=== PATIENT | female | born 1985 | race African-American/Black ===

== ENCOUNTER 2020-04-24 19:52 | Emergency (ER) | payer OTHER ==
[~2020-04-24] VITALS: Ht 162.6 cm; Wt 92.1 kg
[2020-04-24 20:05] VITALS: BP 196/119
[2020-04-24] MEDS ORDERED: DROXIA300 MG PO (20:11)
[2020-04-24] MEDS ORDERED: FOLIC ACID1 MG PO (20:11)
[2020-04-24] MEDS ORDERED: ROXICODONE15 M1 PO (20:11)
[2020-04-24] MEDS ORDERED: OXYCODONE HCL E20 MG PO (20:12)
[2020-04-24] MEDS ORDERED: PROAIR HFA8.5 GM INH (20:12)
[2020-04-24] MEDS ORDERED: FLOVENT HFA12 GM INH (20:12)
[2020-04-24] MEDS ORDERED: XANAX1 MG PO (20:12)
[2020-04-24] MEDS ORDERED: PERCOCET 5-3251 EACH PO (20:13)
== END 2020-04-24 20:31 | disposition home or self-care (01) ==
LOC: M.ERS 19:52
DX: D57.00 Hb-SS disease with crisis, unspecified (principal); Z76.0 Encounter for issue of repeat prescription; I10 Essential (primary) hypertension; J45.909 Unspecified asthma, uncomplicated; F17.210 Nicotine dependence, cigarettes, uncomplicated; Z88.6 Allergy status to analgesic agent; Z88.0 Allergy status to penicillin; Z88.5 Allergy status to narcotic agent; Z90.49 Acquired absence of other specified parts of digestive tract; Z98.890 Other specified postprocedural states